=== PATIENT | male | born 1950 | race Caucasian/White ===

== ENCOUNTER 2018-03-19 11:11 | Emergency (ER) | payer MEDICARE, BC ==
--- NOTE | 2018-03-19 12:40 | UC ---
Skin Complaint HPI - HPI Summary HPI Summary: 68 year old male with skin concern. states Thursday evening was stung or bitten by something in top of right hand while floating in the pool. c/o itching at the site and increased swelling over past 24 hours. concern for infection on the hand and has a graduation to host tomorrow . no fever. no other sx. it is more swollen and itchy than yesterday and has some pressure sensation in the hand from the swelling [ End ] - History of Current Complaint Chief Complaint: UCSkin Time Seen by Provider: 03/19/18 12:27 Stated Complaint: RIGHT HAND SKIN COMPLAINT Hx Obtained From: Patient Onset/Duration: Gradual Onset Timing: Constant Onset Severity: Mild Current Severity: Moderate Pain Intensity: 2 Aggravating Factor(s): Nothing Alleviating Factor(s): Nothing Related History: Insect Bite/Sting - Allergy/Home Medications Allergies/Adverse Reactions: Allergies Allergy/AdvReac Type Severity Reaction Status Date / Time Penicillins Allergy Unknown Verified 03/19/18 12:15 Reaction Details Home Medications: Home Medications Aspirin 81 mg CHEW TAB* [Aspirin Low Dose TAB*] 81 mg PO DAILY 03/19/18 [ History Confirmed 03/19/18] Gabapentin CAP(*) [Neurontin 300 CAP(*)] 300 mg PO BID 03/19/18 [History Confirmed 03/19/18] Pravastatin (NF) [Pravachol (NF)] 40 mg PO 1700 03/19/18 [History Confirmed 11/05] RX: Omeprazole CAP* [Prilosec CAP* 20 MG] 1 tab PO DAILY 03/19/18 [History Confirmed 03/19/18] Verapamil SR TAB* [Calan Sr TAB*] 240 mg PO DAILY 03/19/18 [History Confirmed ] Review of Systems Skin: Rash - redness Is Patient Immunocompromised?: No All Other Systems Reviewed And Are Negative: Yes PMH/Surg Hx/FS Hx/Imm Hx Previously Healthy: Yes Endocrine History: Diabetes, Dyslipidemia Cardiovascular History: Hypertension GI/ History: Gastroesophageal Reflux - Surgical History Surgical History: Yes Surgery Procedure, Year, and Place: left lung CA removed oct 2014. RIght ankle 1996. neck surgery 2004. right knee meniscus repair. left ankle cyst removed - Family History Known Family History: Positive: Hypertension - Social History Occupation: Employed Full-time Lives: With Family Alcohol Use: Daily Alcohol Amount: 2 beers daily Substance Use Type: None Smoking Status (MU): Never Smoked Tobacco Physical Exam Triage Information Reviewed: Yes Appearance: Well-Appearing, No Pain Distress, Well-Nourished Vital Signs: Initial Vital Signs Temp 97.6 F 03/19/18 12:12 Pulse 74 03/19/18 12:12 Resp 16 03/19/18 12:12 BP 120/69 03/19/18 12:12 Pulse Ox 98 03/19/18 12:12 Vital Signs Reviewed: Yes Neck: Positive: 1 Respiratory Exam: Normal Cardiovascular Exam: Normal Musculoskeletal Exam: Normal Musculoskeletal: Positive: Strength Intact, ROM Intact, Edema @ - right hand Neurological Exam: Normal Psychological Exam: Normal Skin Exam: Normal Skin: Positive: Other - right dorsal hand with insect sting present with surrounding redness, mild swelling, no streaking, area of redness looks slightly erythematous. no discharge. cap refill < 3 sec and peripheral pulses intact and brisk. no streaking. hand with FROM. area of redness 2x2 cm but not confluent Course/Dx - Course Course Of Treatment: with the redness setting in he is concern for infection -- I advise epsolm salts, benadryl, ranitidine, elevate hand and if redness worsens or spreds start antibiotics - Differential Diagnoses - Skin Complaint Differential Diagnoses: Abscess, Cellulitis, Contact Dermatitis, Impetigo, Local Allergic Reaction - Diagnoses Provider Diagnoses: insect sting right hand with secondary bacterial infection Discharge - Sign-Out/Discharge Documenting (check all that apply): Discharge/Admit/Transfer - Discharge Plan Condition: Good Disposition: HOME Prescriptions: RX: Cephalexin CAP* [Keflex 500 CAP*] 500 mg PO TID 7 Days #21 cap Patient Education Materials: Insect Bite or Sting (ED) Referrals: No Primary Care Phys,NOPCP [Primary Care Provider] - 4 Days Additional Instructions: As we discussed with the redness setting in there is concern for potential infection -- It is advised to use Epsom salts, Benadryl, ranitidine, elevate hand and if redness worsens or spreads start antibiotics - Billing Disposition and Condition Condition: GOOD Disposition: HOME
== END 2018-03-19 13:10 | disposition home or self-care (01) ==
LOC: UCCORT 11:11
DX: L08.89 Other specified local infections of the skin and subcutaneous tissue (principal); B96.89 Other specified bacterial agents as the cause of diseases classified elsewhere; T63.481A Toxic effect of venom of other arthropod, accidental (unintentional), initial encounter; W57.XXXA Bitten or stung by nonvenomous insect and other nonvenomous arthropods, initial encounter; Y93.11 Activity, swimming; Y92.9 Unspecified place or not applicable; Z88.0 Allergy status to penicillin; K21.9 Gastro-esophageal reflux disease without esophagitis; E11.9 Type 2 diabetes mellitus without complications; I10 Essential (primary) hypertension; E78.5 Hyperlipidemia, unspecified
CPT/HCPCS: 99202; G0463